=== PATIENT | male | born 1990 | race Caucasian/White ===

== ENCOUNTER 2018-06-21 10:29 | Outpatient (CLI) | payer OTHER ==
--- NOTE | 2018-06-21 12:50 | RAD ---
LUMBAR SPINE THREE VIEWS: Date: 06-21-18 FINDINGS: No fracture, dislocation, or acute bony change was seen. At most, there may be some very minor disc s pace narrowing at L5-S1. No bony anomalies are seen. The SI joints are symmetrical. Very slight anter ior wedging of T12 and L1 is generally physiologic in this age group. IMPRESSION: No acute findings. POS: [facility]
--- NOTE | 2018-06-21 12:51 | RAD ---
LEFT KNEE FOUR VIEWS: Date: 06-21-18 FINDINGS: No fracture, dislocation, or joint effusion was seen. The joint space and joint surfaces all appear n ormal. IMPRESSION: No acute findings. POS: [facility]
== END 2018-06-21 10:30 | disposition home or self-care (01) ==
LOC: BURRAD 10:29
PROVIDERS: ATTEND Family Medicine
DX: M51.37 Other intervertebral disc degeneration, lumbosacral region (principal); M25.562 Pain in left knee
CPT/HCPCS: 72100